=== PATIENT | female | born 1950 | race Caucasian/White ===

== ENCOUNTER 2017-06-04 07:31 | Outpatient (CLI) | payer MEDICARE ==
--- NOTE | 2017-06-04 09:41 | CT ---
CT CHEST WITHOUT CONTRAST: HISTORY: Low dose lung screening. COMPARISON: Low dose screening from 05/07/2016. FINDINGS: Lung screening specific: There are no solid or part-solid or ground glass nodules meeting lung-RADS c riteria for short-term followup or intervention. There are multiple small sub-4 mm and sub-5 mm nodu les, which are similar to the comparison examination. The 5 mm left upper lobe nodule is similar, which was previously described. This has not grown. Lung-RADS category S: None. Pulmonary incidentals: Mild to moderate centriloblar pulmonary emphysema. Scarring in the lung apic es. No pneumothorax or effusion. Other incidentals: Mild vascular calcification of the aorta. No aneurysmal dilatation. The upper abdomen is unremarkable. No compression fracture of the thoracic spine. IMPRESSION: 1. Lung-RADS category 2: Benign appearance or behavior. Continue annual low dose screening in 12 [facility]. 2. Lung-RADS category S: Negative. No new or unknown potentially significant incidental findings r equiring urgent additional evaluation. POS: [facility]
== END 2017-06-04 07:32 | disposition home or self-care (01) ==
LOC: CT 07:31
PROVIDERS: ATTEND Family Medicine
DX: F17.210 Nicotine dependence, cigarettes, uncomplicated (principal)
CPT/HCPCS: G0297

== ENCOUNTER 2018-06-04 10:01 | Outpatient (CLI) | payer MEDICARE ==
--- NOTE | 2018-06-04 12:37 | CT ---
CT CHEST WITHOUT CONTRAST: Comparison: 06-04-17, 05-07-16 History: Nicotine dependence. 50+ smoking year history. Left bundle branch block. Shortness of breath . Technique: A CT of the chest was performed without contrast for low dose cancer screening protocol. S agittal and coronal reformats were performed. FINDINGS: There is a 5 mm area of nodularity in the left upper lobe on axial image 23 of 68. This is at a branc h of coronary vessels and may not represent a true nodule and may represent simply a branch point of the vessels. This again remains stable. There are scattered less than 3 mm areas of nodularity in the bilateral upper lobes which are stable. No new pulmonary nodules are identified. Scarring is seen in the medial aspect of the right upper lobe. No pneumothorax or pleural effusion ar e seen. The heart is normal in size without focal cardiac abnormality. No hilar or mediastinal lymphadenopath y are seen. Degenerative changes are seen in the spine. The visualized subdiaphragmatic structures and chest wall soft tissues are unremarkable. IMPRESSION: Lung RADS category 2 - benign findings. POS: [id number]
== END 2018-06-04 10:02 | disposition home or self-care (01) ==
LOC: CT 10:01
PROVIDERS: ATTEND Family Medicine
DX: F17.210 Nicotine dependence, cigarettes, uncomplicated (principal); R91.1 Solitary pulmonary nodule
CPT/HCPCS: G0297

== ENCOUNTER 2022-02-06 12:07 | Inpatient (IN) | payer MEDICARE ==
[2022-02-06 13:07] LABS: Bacteria/HPF 2+ HPF (None Seen); Bilirubin Negative (Negative); Blood, Urine 1+ (Negative); Clarity Clear (Clear); Glucose, Urine (Dipstick) 100 mg/dL (Negative); Ketone, Urine Negative (Negative); Leukocyte 500 Leu/uL (Negative); Nitrite Negative (Negative); Protein, Urine (Dipstick) 20 mg/dL (Neg-Trace); Specific Gravity, Urine 1.008 (1.002-1.036); Squamous Epithelial 0-3 HPF (0-3); Urobilinogen Normal mg/dL (Less than 2); WBC/HPF Greater than 50 HPF (0-3); Yeast-Budding 1+ HPF (None Seen); pH, Urine 6.5 (5.0-9.0)
[2022-02-06 14:07] LABS: #Eosinphils 0.2 thou/uL (0.0-0.7); #Lymphocytes 1.8 thou/uL (1.20-3.40); #Monocytes 0.5 thou/uL (0.11-0.59); #Neutrophils 5.7 thou/uL (1.40-6.50); %Basophils 0.4 % (0.0-1.0); %Eosinophils 2.3 % (0.0-10.0); %Lymphocytes 22.6 % (21.0-51.0); %Monocytes 5.6 % (0.0-10.0); %Neutrophils 69.2 % (42.0-75.0); Mean Corpuscular HGB CONC 34.4 g/dL (32.0-36.0); Mean Corpuscular Hemoglobin 31.6 pg (27.0-31.0); Mean Corpuscular Volume 91.9 fL (78.0-98.0); Mean Platelet Volume 6.3 fL (7.4-10.4); Platelet Count 244 thou/uL (130-400); RBC Distribution Width 13.7 % (11.5-14.5); Red Blood Cell (RBC) Count 3.81 mill/uL (4.20-5.40); White Blood Cell (WBC) Count 8.2 thou/uL (4.8-10.8)
[2022-02-06 14:18] LABS: Prothrombin Time 12.9 sec (12.0-14.7)
[2022-02-06 14:19] LABS: PTT 46.4 sec (22.9-36.1)
[2022-02-06 14:27] LABS: ALT (SGPT) 21 U/L (8-55); AST (SGOT) 23 U/L (5-34); Albumin 3.9 g/dL (3.4-4.8); Alkaline Phosphatase 83 U/L (40-110); Anion Gap 13 mmol/L (10-20); BUN (Urea Nitrogen) 12 mg/dL (9.8-20.1); Bilirubin, Total 0.5 mg/dL (0.2-1.2); Calc. Creatinine Clearance 0 mL/min (70-130); Calcium 10.2 mg/dL (7.8-10.44); Carbon Dioxide 29 mmol/L (23-31); Chloride 102 mmol/L (98-107); Estimated GFR 81; Globulin 3.6 g/dL (2.4-3.5); Glucose 159 mg/dL (83-110); Magnesium 1.9 mg/dL (1.6-2.6); Potassium 4.3 mmol/L (3.5-5.1); Protein, Total 7.5 g/dL (5.8-8.1); Sodium 140 mmol/L (136-145)
[2022-02-06] MEDS ORDERED: Ondansetron ODT 4 MG TAB PO PRN (16:54)
[2022-02-06] MEDS ORDERED: hydrALAZINE 20 MG/ML VIAL SLOW IVP PRN (16:54)
[2022-02-06] MEDS ORDERED: Ondansetron PF 4 MG/2 ML Vial IVP PRN (16:54)
[2022-02-06] MEDS ORDERED: Acetaminophen 650 MG Suppository PR PRN (16:54)
[2022-02-06] MEDS ORDERED: Acetaminophen 325 MG TAB PO PRN (16:54)
[2022-02-06] MEDS ORDERED: Aspirin 325 mg Enteric Coated Tablet PO SCH (17:15)
[2022-02-06 20:42] VITALS: BMI 22.4
[2022-02-06] MEDS: cefTRIAXone\\ROCEPHIN 1 GM in Sodium Chloride 0.9% 100 ML IVPB SCH (20:56)
[2022-02-06] MEDS: Atorvastatin Calcium 40 MG TAB PO SCH (20:57)
[2022-02-07 05:25] LABS: #Eosinphils 0.2 thou/uL (0.0-0.7); #Lymphocytes 1.9 thou/uL (1.20-3.40); #Monocytes 0.4 thou/uL (0.11-0.59); %Basophils 0.1 % (0.0-1.0); %Eosinophils 2.7 % (0.0-10.0); %Lymphocytes 25.6 % (21.0-51.0); %Monocytes 5.1 % (0.0-10.0); %Neutrophils 66.4 % (42.0-75.0); Hemoglobin 10.9 g/dL (12.0-16.0); Mean Corpuscular HGB CONC 33.1 g/dL (32.0-36.0); Mean Corpuscular Hemoglobin 30.6 pg (27.0-31.0); Mean Corpuscular Volume 92.6 fL (78.0-98.0); Mean Platelet Volume 6.6 fL (7.4-10.4); Platelet Count 226 thou/uL (130-400); RBC Distribution Width 13.9 % (11.5-14.5); Red Blood Cell (RBC) Count 3.57 mill/uL (4.20-5.40); White Blood Cell (WBC) Count 7.5 thou/uL (4.8-10.8)
[2022-02-07 05:32] LABS: Hemoglobin A1c 6.4 % (4.0-6.0)
[2022-02-07 05:45] LABS: Anion Gap 15 mmol/L (10-20); BUN (Urea Nitrogen) 13 mg/dL (9.8-20.1); Calc. Creatinine Clearance 68 mL/min (70-130); Calcium 9.8 mg/dL (7.8-10.44); Carbon Dioxide 25 mmol/L (23-31); Cardiac Risk 3.3 (Less than 4.5); Chloride 103 mmol/L (98-107); Cholesterol 106 mg/dl (< 200 Desired); Estimated GFR 83; Glucose 173 mg/dL (83-110); HDL Cholesterol 32 mg/dL (>60 Neg Risk); LDL Cholesterol, Calculated 47 mg/dL; Potassium 4.2 mmol/L (3.5-5.1); Sodium 139 mmol/L (136-145); Triglycerides 133 mg/dL (Less than 150)
[2022-02-07] MEDS ORDERED: Albuterol 200 PUFF (6.7GM INHALER) INH PRN (08:44)
[2022-02-07] MEDS: Aspirin 81 mg Enteric Coated Tablet PO SCH (09:45)
[2022-02-07] MEDS: cefTRIAXone\\ROCEPHIN 1 GM in Sodium Chloride 0.9% 100 ML IVPB SCH (18:04)
[2022-02-07] MEDS ORDERED: Aspirin 81 mg Enteric Coated Tablet PO SCH (21:00)
[2022-02-07] MEDS: Atorvastatin Calcium 40 MG TAB PO SCH (21:29)
[2022-02-08 05:36] LABS: #Eosinphils 0.2 thou/uL (0.0-0.7); #Lymphocytes 2.1 thou/uL (1.20-3.40); #Monocytes 0.4 thou/uL (0.11-0.59); #Neutrophils 3.6 thou/uL (1.40-6.50); %Basophils 0.4 % (0.0-1.0); %Eosinophils 3.5 % (0.0-10.0); %Lymphocytes 33.4 % (21.0-51.0); %Neutrophils 56.7 % (42.0-75.0); Hemoglobin 11.7 g/dL (12.0-16.0); Mean Corpuscular HGB CONC 32.9 g/dL (32.0-36.0); Mean Corpuscular Hemoglobin 30.6 pg (27.0-31.0); Mean Platelet Volume 6.6 fL (7.4-10.4); Platelet Count 228 thou/uL (130-400); RBC Distribution Width 14.2 % (11.5-14.5); Red Blood Cell (RBC) Count 3.82 mill/uL (4.20-5.40); White Blood Cell (WBC) Count 6.4 thou/uL (4.8-10.8)
[2022-02-08 05:59] LABS: Anion Gap 16 mmol/L (10-20); BUN (Urea Nitrogen) 19 mg/dL (9.8-20.1); Calc. Creatinine Clearance 65 mL/min (70-130); Calcium 10.3 mg/dL (7.8-10.44); Carbon Dioxide 24 mmol/L (23-31); Chloride 105 mmol/L (98-107); Estimated GFR 79; Glucose 176 mg/dL (83-110); Potassium 4.5 mmol/L (3.5-5.1); Sodium 140 mmol/L (136-145)
[2022-02-08] MEDS ORDERED: Levothyroxine Sodium 100 MCG TAB PO SCH (06:00)
[2022-02-08] MEDS: Aspirin 81 mg Enteric Coated Tablet PO SCH (08:46)
[2022-02-08 15:49] VITALS: BP 137/67; TEMP 98.4
[2022-02-08] MEDS: cefTRIAXone\\ROCEPHIN 1 GM in Sodium Chloride 0.9% 100 ML IVPB SCH (16:41)
[2022-02-09] MEDS ORDERED: Clopidogrel Bisulfate 75 MG TAB PO SCH (09:00)
== END 2022-02-08 18:40 | disposition home or self-care (01) | DRG 92 ==
LOC: ERS 12:07 → ERHOLD 15:48 → NEURO 18:37
PROVIDERS: ADMIT Internal Medicine; ATTEND Internal Medicine
DX: R27.0 Ataxia, unspecified (principal); N39.0 Urinary tract infection, site not specified; H55.09 Other forms of nystagmus; E11.9 Type 2 diabetes mellitus without complications; E78.5 Hyperlipidemia, unspecified; E78.00 Pure hypercholesterolemia, unspecified; F17.210 Nicotine dependence, cigarettes, uncomplicated; I10 Essential (primary) hypertension; I44.7 Left bundle-branch block, unspecified; Z20.822 Contact with and (suspected) exposure to COVID-19; Z90.49 Acquired absence of other specified parts of digestive tract; Z98.890 Other specified postprocedural states
CPT/HCPCS: 36415; 36416; 70450; 70551; 80048; 80053; 80061; 81003; 81015; 83036; 83735; 84443; 84484; 85025; 85610; 85730; 87040; 87077; 87086; 87186; 93005; 93306; 93880; J0696; J3490; U0003; U0005

== ENCOUNTER 2022-07-08 15:33 | Observation (INO) | payer MEDICARE ==
[2022-07-08] MEDS ORDERED: Nitroglycerin 2% Ointment 1 INCH/1 GM Packet ONE (15:52)
[2022-07-08 16:23] LABS: #Eosinphils 0.4 thou/uL (0.0-0.7); #Lymphocytes 2.2 thou/uL (1.20-3.40); #Monocytes 0.5 thou/uL (0.11-0.59); #Neutrophils 5.5 thou/uL (1.40-6.50); %Basophils 0.5 % (0.0-1.0); %Eosinophils 5.1 % (0.0-10.0); %Lymphocytes 25.5 % (21.0-51.0); %Monocytes 5.2 % (0.0-10.0); %Neutrophils 63.8 % (42.0-75.0); Hemoglobin 12.9 g/dL (12.0-16.0); Mean Corpuscular HGB CONC 33.4 g/dL (32.0-36.0); Mean Corpuscular Hemoglobin 31.1 pg (27.0-31.0); Mean Corpuscular Volume 93.1 fl (78.0-98.0); Mean Platelet Volume 7.3 fL (7.4-10.4); Platelet Count 185 10x3/uL (130-400); RBC Distribution Width 12.9 % (11.5-14.5); Red Blood Cell (RBC) Count 4.15 mill/uL (4.20-5.40); White Blood Cell (WBC) Count 8.7 10x3/uL (4.8-10.8)
[2022-07-08 16:44] LABS: ALT (SGPT) 27 U/L (8-55); AST (SGOT) 23 U/L (5-34); Albumin 3.8 g/dL (3.4-4.8); Alkaline Phosphatase 62 U/L (40-110); Anion Gap 13 mmol/L (10-20); BUN (Urea Nitrogen) 10 mg/dL (9.8-20.1); Bilirubin, Total 0.4 mg/dL (0.2-1.2); CK (CPK) 141 U/L (29-168); Calc. Creatinine Clearance 0 mL/min (70-130); Calcium 9.4 mg/dL (7.8-10.44); Carbon Dioxide 26 mmol/L (23-31); Chloride 106 mmol/L (98-107); Estimated GFR 83; Globulin 2.7 g/dL (2.4-3.5); Glucose 146 mg/dL (83-110); Lipase 49 U/L (8-78); Potassium 4.2 mmol/L (3.5-5.1); Protein, Total 6.5 g/dL (5.8-8.1); Sodium 141 mmol/L (136-145)
[2022-07-08] MEDS ORDERED: Nitroglycerin 0.4 MG TAB (25 Tab Bottle) SL PRN (18:24)
[2022-07-08] MEDS ORDERED: Acetaminophen 650 MG Suppository PR PRN (18:25)
[2022-07-08] MEDS ORDERED: Acetaminophen 325 MG TAB PO PRN (18:25)
[2022-07-08] MEDS ORDERED: Atorvastatin Calcium 40 MG TAB PO SCH (21:00)
[2022-07-08 21:32] LABS: Troponin I Less than 0.010 ng/mL (< 0.028)
[2022-07-08 22:20] VITALS: BMI 22.4
[2022-07-08 23:58] LABS: Troponin I Less than 0.010 ng/mL (< 0.028)
[2022-07-09 05:53] LABS: #Eosinphils 0.5 thou/uL (0.0-0.7); #Lymphocytes 2.7 thou/uL (1.20-3.40); #Monocytes 0.5 thou/uL (0.11-0.59); %Basophils 0.4 % (0.0-1.0); %Eosinophils 5.2 % (0.0-10.0); %Lymphocytes 30.8 % (21.0-51.0); %Monocytes 5.9 % (0.0-10.0); %Neutrophils 57.6 % (42.0-75.0); Hemoglobin 13.8 g/dL (12.0-16.0); Mean Corpuscular HGB CONC 33.1 g/dL (32.0-36.0); Mean Corpuscular Hemoglobin 30.4 pg (27.0-31.0); Mean Platelet Volume 7.6 fL (7.4-10.4); Platelet Count 197 10x3/uL (130-400); RBC Distribution Width 13.2 % (11.5-14.5); Red Blood Cell (RBC) Count 4.52 mill/uL (4.20-5.40); White Blood Cell (WBC) Count 8.6 10x3/uL (4.8-10.8)
[2022-07-09] MEDS ORDERED: Levothyroxine Sodium 100 MCG TAB PO SCH (06:00)
[2022-07-09 06:14] LABS: Anion Gap 13 mmol/L (10-20); BUN (Urea Nitrogen) 10 mg/dL (9.8-20.1); Calc. Creatinine Clearance 67 mL/min (70-130); Carbon Dioxide 26 mmol/L (23-31); Chloride 106 mmol/L (98-107); Cholesterol 102 mg/dl (< 200 Desired); Estimated GFR 81; Glucose 147 mg/dL (83-110); HDL Cholesterol 34 mg/dL (>60 Neg Risk); LDL Cholesterol, Calculated 44 mg/dL; Sodium 141 mmol/L (136-145); Triglycerides 122 mg/dL (Less than 150)
[2022-07-09] MEDS ORDERED: Regadenoson 0.4 MG/5 ML SYRINGE ONE (08:09)
[2022-07-09] MEDS ORDERED: Aspirin Chewable 81 MG TAB PO SCH (09:00)
[2022-07-09] MEDS ORDERED: Primidone 50 MG TAB PO SCH (09:00)
[2022-07-09] MEDS ORDERED: Lisinopril 20 MG TAB PO SCH (09:00)
[2022-07-09 14:21] VITALS: BP 171/73; TEMP 98.6
[2022-07-09] MEDS ORDERED: Aspirin 81 mg Enteric Coated Tablet PO SCH (21:00)
== END 2022-07-09 16:05 | disposition home or self-care (01) ==
LOC: ERS 15:33 → 2SW 17:42
PROVIDERS: ADMIT Hospitalist; ATTEND Physician Assistant
DX: R07.89 Other chest pain (principal); I10 Essential (primary) hypertension; E78.00 Pure hypercholesterolemia, unspecified; E03.9 Hypothyroidism, unspecified; F17.210 Nicotine dependence, cigarettes, uncomplicated; I44.7 Left bundle-branch block, unspecified; E11.9 Type 2 diabetes mellitus without complications; Z79.82 Long term (current) use of aspirin; Z79.84 Long term (current) use of oral hypoglycemic drugs; Z79.890 Hormone replacement therapy; Z79.899 Other long term (current) drug therapy; Z88.5 Allergy status to narcotic agent; Z88.7 Allergy status to serum and vaccine; Z91.030 Bee allergy status; Z20.822 Contact with and (suspected) exposure to COVID-19
CPT/HCPCS: 71045; 78452; 80048; 80061; 82550; 82962; 83690; 83880; 84484 ×2; 85025; 93005; 93017; 94760 ×2; A9500; G0378 ×3; U0003; U0005; 36415; 36416; 80053; 84443; J2785